=== PATIENT | male | born 1975 | race Caucasian/White ===

== ENCOUNTER 2017-05-25 20:51 | Emergency (ER) | payer OTHER ==
[2017-05-25] MEDS ORDERED: HYDROmorphONE/DILAUDID 1 MG/ML INJ IVP ONE (21:23)
[2017-05-25] MEDS ORDERED: NS 1,000 ML IV ONE (21:23)
[2017-05-25 21:56] LABS: PLATELET COUNT 265 10^3/uL (150-400)
[2017-05-25] MEDS ORDERED: IOPAMIDOL (ISOVUE-300) 100 ML BTL ONE (22:36)
--- NOTE | 2017-05-25 23:15 | EDPHY ---
H & P Stated Complaint: COLD/FEVER/DIARRHEA/RED STOOL/ABD PAIN X 4 DAYS - Personal History Current Tetanus Diphtheria and Acellular Pertussis (TDAP): Yes Tetanus Vaccine Date: 2013 - Medical/Surgical History Hx Asthma: No Hx Chronic Respiratory Disease: No Hx Diabetes: No Hx Cardiac Disease: No Hx Renal Disease: No Hx Cirrhosis: No Hx Alcoholism: No Hx HIV/AIDS: No Hx Splenectomy or Spleen Trauma: No Other PMH: appy, blood clot in head - Social History Smoking Status: Former smoker HPI/ROS: Chief complaint: Fever, abdominal pain, blood in stool History of present illness: This is a 41-year-old male who presents to the emergency department for evaluation of fever, abdominal pain and blood in his stools. He reports the onset of symptoms over the last 3-4 days. Symptoms have been persistent. He denies potential precipitating factors. He has use some Pepto-Bismol with minimal relief. He denies other alleviating factors. He denies aggravating factors. He denies other associated signs or symptoms including no nausea or vomiting, no urinary symptoms. He denies sick contacts. He denies foreign travel. He denies antibiotic use. He denies environmental exposure. Review of systems: A 10 point review of systems was obtained and other than described above was negative (Randolph Sutherland) - Physical Exam Exam: General Appearance: Alert, nontoxic. Eyes: Pupils equal and round no pallor or injection. ENT, Mouth: Mucous membranes moist. Respiratory: There are no retractions, lungs are clear to auscultation. Cardiovascular: Regular rate and rhythm. Gastrointestinal: Abdomen is soft and non tender, no masses, bowel sounds normal. Neurological: Alert and oriented x4. Strength and sensation intact and symmetrical. Skin: Warm and dry, no rashes. Musculoskeletal: Neck is supple non tender. Extremities are symmetrical, full range of motion. Psychiatric: Patient is oriented X 3, there is no agitation. (Randolph Sutherland) Constitutional: Initial Vital Signs Temperature (C) 37.1 C 05/25/17 20:56 Heart Rate 95 05/25/17 20:56 Respiratory Rate 18 05/25/17 20:56 Blood Pressure 149/102 H 05/25/17 20:56 O2 Sat (%) 96 05/25/17 20:56 O2 Delivery Mode Room Air Allergies/Adverse Reactions: No Known Allergies Allergy (Verified 05/08/14 13:38) Home Medications: Medication Instructions Recorded Multivitamins [Multivitamin (*)] 1 each PO DAILY 01/14/14 Medical Decision Making - Diagnostics Imaging: Discussed imaging studies w/ call center operator Radiologist - Diagnostics Imaging Results: Imaging Impressions Abdomen CT 05/25/17 22:25 Impression: 1.Suspect colitis. 2. Bilateral nonobstructive nephrolithiasis. Results called and discussed with LAURIE Collazo, at 05/25/2017 23:03 General information for patients regarding this examination can be found at [email or web address]. If you have questions or comments about this report, please contact me at (hospital) or [phone] (cell). ED Course/Re-evaluation: Patient is discussed with my secondary supervising physician Dr. Harleen Gilliland. Patient presents to the emergency department for fever, abdominal pain and bloody stools. He is nontoxic. Vital signs are stable. Serial abdominal exams in the emergency room have remained benign from initial evaluation to just prior to discharge. Blood studies are largely unremarkable. CT scan concerning for colitis. He is tolerating oral challenges. I believe he is appropriate for discharge home. Home care is discussed. He is asked to follow up with Gastroenterology for continued evaluation and care and referral information is provided. Strict return precautions are given. The patient voiced understanding and agreement with plan. (Randolph Sutherland) PHYSICIAN DOCUMENTATION: The patient was evaluated and managed by the Physician Batch And Furnace Operator. My co- signature indicates that I have reviewed this chart and I agree with the findings and plan of care as documented. I am the secondary supervising physician. (Harleen Gilliland) Differential Diagnosis: Included but not limited to colitis, diverticulitis, appendicitis, gastroenteritis (Randolph Sutherland) - Data Points Laboratory Results: Laboratory Results 05/25/17 21:47 05/25/17 21:47 05/25/17 05/25/17 05/25/17 21:47 21:47 21:12 WBC 6.54 10^3/uL 10^3/uL (3.80-9.50) RBC 5.02 10^6/uL 10^6/uL (4.40-6.38) Hgb 15.0 g/dL g/dL (13.7-17.5) Hct 44.4 % % (40.0-51.0) MCV 88.4 fL fL (81.5-99.8) MCH 29.9 pg pg (27.9-34.1) MCHC 33.8 g/dL g/dL (32.4-36.7) RDW 11.9 % % (11.5-15.2) Plt Count 265 10^3/uL 10^3/uL (150-400) MPV 9.2 fL fL (8.7-11.7) Neut % (Auto) 53.5 % % (39.3-74.2) Lymph % (Auto) 32.9 % % (15.0-45.0) [place] % (Auto) 11.8 % % (4.5-13.0) Eos % (Auto) 0.6 % % (0.6-7.6) Baso % (Auto) 0.6 % % (0.3-1.7) Nucleat RBC Rel Count 0.0 % % (0.0-0.2) Absolute Neuts (auto) 3.50 10^3/uL 10^3/uL (1.70-6.50) Absolute Lymphs (auto) 2.15 10^3/uL 10^3/uL (1.00-3.00) Absolute Monos (auto) 0.77 10^3/uL 10^3/uL (0.30-0.80) Absolute Eos (auto) 0.04 10^3/uL 10^3/uL (0.03-0.40) Absolute Basos (auto) 0.04 10^3/uL 10^3/uL (0.02-0.10) Absolute Nucleated RBC 0.00 10^3/uL 10^3/uL (0-0.01) Immature Gran % 0.6 % % (0.0-1.1) Immature Gran # 0.04 10^3/uL 10^3/uL (0.00-0.10) Sodium 140 mEq/L mEq/L (135-145) Potassium 3.3 mEq/L L mEq/L (3.5-5.2) Chloride 98 mEq/L mEq/L (97-110) Carbon Dioxide 28 mEq/l mEq/l (22-31) Anion Gap 14 mEq/L mEq/L (8-16) BUN 10 mg/dL mg/dL (7-23) Creatinine 1.0 mg/dL mg/dL (0.7-1.3) Estimated GFR > 60 Glucose 105 mg/dL H mg/dL (70-100) Calcium 8.6 mg/dL mg/dL (8.5-10.4) Total Bilirubin 0.6 mg/dL mg/dL (0.1-1.4) Conjugated Bilirubin 0.4 mg/dL mg/dL (0.0-0.5) Unconjugated Bilirubin 0.2 mg/dL mg/dL (0.0-1.1) AST 25 IU/L IU/L (17-59) ALT 29 IU/L IU/L (21-72) Alkaline Phosphatase 91 IU/L IU/L (38-126) Total Protein 6.4 g/dL g/dL (6.3-8.2) Albumin 3.6 g/dL g/dL (3.5-5.0) Lipase 79 IU/L IU/L (23-300) Nasal Influenza A PCR NEGATIVE FOR FLU A (NEGATIVE) Nasal Influenza B PCR NEGATIVE FOR FLU B (NEGATIVE) Medications Given: Discontinued Medications Hydromorphone HCl (Dilaudid) 0.5 mg IVP EDNOW ONE Stop: 05/25/17 21:24 Last Admin: 05/25/17 21:25 Dose: Not Given Sodium Chloride (Ns) 1,000 mls @ 0 mls/hr IV EDNOW ONE; Wide Open PRN Reason: Protocol Stop: 05/25/17 21:24 Last Admin: 05/25/17 21:25 Dose: 1,000 mls Departure - Departure Disposition: Home, Routine, Self-Care Clinical Impression: Colitis Condition: Good Instructions: Colitis (ED) Additional Instructions: Follow-up with a primary care doctor and a water and sewer systems superintendent for continued evaluation and care If symptoms worsen or new symptoms develop return to the emergency room for recheck Referrals: [facility] [Other] - As per Instructions Avtar Sy MD [Medical Doctor] - As per Instructions
[2017-05-25 23:27] VITALS: RESP 16; TEMP 98.1; O2SAT 97
[2017-05-25 23:28] VITALS: BP 128/87; PULSE 77
== END 2017-05-25 23:29 | disposition home or self-care (01) ==
DX: K52.9 Noninfective gastroenteritis and colitis, unspecified (principal); Z87.891 Personal history of nicotine dependence
CPT/HCPCS: Q9967